=== PATIENT | male | born 1995 | race Caucasian/White ===

== ENCOUNTER 2019-12-17 08:00 | Emergency (ER) | payer OTHER, SELFPAY ==
--- NOTE | 2019-12-17 08:18 | XR_ITS ---
EXAMINATION: XR KNEE, LEFT CLINICAL INFORMATION: Left knee pain status post fall. COMPARISON: None TECHNIQUE: Four views of the left knee. FINDINGS: Bones and soft tissues are normal. No fracture or joint effusion. Alignment is anatomic. Joint spaces are well maintained. No abnormal soft tissue calcification. XR/XR knee LT 4V IMPRESSION: Unremarkable left knee.
--- NOTE | 2019-12-17 08:19 | ED.LOWEXIN ---
HPI - Extremity Injury (Lower) General Chief Complaint: Extremity Injury, Lower <CRISTINA Veloz - Last Filed: 12/17/19 09:08> Stated Complaint: left knee inj <CRISTINA Veloz - Last Filed: 12/17/19 09:08> Time Seen by Provider: 12/17/19 08:13 <CRISTINA Veloz - Last Filed: 12/17/19 09:08> Source: patient <CRISTINA Veloz - Last Filed: 12/17/19 09:08> Mode of arrival: ambulatory <CRISTINA Veloz - Last Filed: 12/17/19 09:08> Limitations: no limitations <CRISTINA Veloz Last Filed: 12/17/19 09:08> History of Present Illness HPI Narrative: 24 y/o healthy mal presenting with left knee pain after he injured it while playing basketball yesterday. He states he landed on his left leg after jumping and his knee went inward. He heard a pop. After that he was unable to fully straighten his leg. He was able to ambulate with a limp. This morning the pain continued so he came to the ER for evaluation. <CRISTINA Veloz - Last Filed: 12/17/19 09:08> MD complaint: knee injury <CRISTINA Veloz - Last Filed: 12/17/19 09:08> Injury: Left: knee <CRISTINA Veloz - Last Filed: 12/17/19 09:08> Type of Injury: inversion <CRISTINA Veloz Last Filed: 12/17/19 09:08> Place: street/outdoors <CRISTINA Veloz - Last Filed: 12/17/19 09:08> Severity: moderate <CRISTINA Veloz Last Filed: 12/17/19 09:08> Severity scale (1-10): 5 <CRISTINA Veloz Last Filed: 12/17/19 09:08> Relieving factors: rest <CRISTINA Veloz Last Filed: 12/17/19 09:08> Exacerbating factors: weight bearing, movement and palpation <CRISTINA Veloz - Last Filed: 12/17/19 09:08> Context: fall <CRISTINA Veloz - Last Filed: 12/17/19 09:08> Associated symptoms: snap/pop sensation <CRISTINA Veloz - Last Filed: 12/17/19 09:08> Other symptoms: none <CRISTINA Veloz - Last Filed: 12/17/19 09:08> Related Data Home Medications: Previous Rx's Medication Instructions Recorded ibuprofen 600 mg PO Q8H #30 tab 12/17/19 <CRISTINA Veloz - Last Filed: 12/17/19 09:08> Allergies/Adverse Reactions: Allergies Allergy/AdvReac Type Severity Reaction Status Date / Time No Known Allergies Allergy Unverified 10/24/19 18:37 <CRISTINA Veloz - Last Filed: 12/17/19 09:08> Review of Systems Review of Systems: Constitutional: No Fever, No Chills Cardiovascular: No Chest Pain, No SOB, No Orthopnea, No Edema Respiratory: No Cough, No Sputum, No Wheezing, No dyspnea Musculoskeletal: + joint pain, No Myalgias, No joint swelling Skin: No Skin Lesions, No rash Neuro: No Weakness, No Numbness, No Dizziness, No Headache Heme/Lymph: No Bruising <CRISTINA Veloz - Last Filed: 12/17/19 09:08> [facility] Past Medical History Attestation statement: The following information was validated with the patient. <CRISTINA Veloz - Last Filed: 12/17/19 09:08> Source: unable to obtain <CRISTINA Veloz - Last Filed: 12/17/19 09:08> Medical History: Medical History (Updated 12/18/19 @ 00:21 by Fiorella Vargas) No known health problems No known health problems <CRISTINA Veloz Last Filed: 12/17/19 09:08> Social History Social History: Social History Alcohol intake: never Smoked in Last 30 Days: No Use of substances other than those prescribed or required for medical reasons: No Advance Directives: Yes Advance Directives Information Provided: No Advance Directives on File: No <CRISTINA Veloz Last Filed: 12/17/19 09:08> Physical Exam Vital Signs: Vital Signs: Last Vital Signs Temp 98.6 F 12/17/19 08:20 Pulse 108 H 12/17/19 08:20 Resp 16 12/17/19 08:20 BP 148/92 H 12/17/19 08:20 Pulse Ox 99 12/17/19 08:20 Body Mass Index 36.1 General: well-developed, no distress. HEENT: Pharynx normal. CVS: Normal heart rate and rhythm. Pulses normal. Respiratory: No respiratory distress. Skin: Skin warm and dry. Normal skin color. Normal skin turgor. No rashes. Extremities: No lower extremity edema. Left knee with tenderness along the lateral joint line, no swelling, redness, crepitus. Full ROM with pain at full flexion and extention. Negative anterior drawer test. Normal left ankle joint inspection and palpation. Neuro: Oriented X 3. No motor deficit. No sensory deficit. <CRISTINA Veloz - Last Filed: 12/17/19 09:08> Vital Signs: Last Vital Signs Temp 98.6 F 12/17/19 08:20 Pulse 108 H 12/17/19 08:20 Resp 16 12/17/19 08:20 BP 148/92 H 12/17/19 08:20 Pulse Ox 99 12/17/19 08:20 Body Mass Index 36.1 <Luis Hobbs MD - Last Filed: 12/20/19 01:44> Course Course Course Narrative: Suspect knee strainm, unable to r/o ligamentous tear or meninscus tear. Will start with XR. <CRISTINA Veloz - Last Filed: 12/17/19 09:08> I have reviewed the chart <Luis Hobbs MD - Last Filed: 12/20/19 01:44> Reevaluation(s) Reevaluation #1: Knee x-ray unremarkable. Discussed with patient conservative management with compression, rest, ice and NSAIDs. If no improvement encouraged to f/u with Ortho for further evaluation. Patient agrees with plan. Stable for discharge. <CRISTINA Veloz - Last Filed: 12/17/19 09:08> Critical Care Time Critical Care Time Critical Care Time: No <CRISTINA Veloz - Last Filed: 12/17/19 09:08> Discharge Plan Discharge Clinical Impression: Knee sprain <CRISTINA Veloz - Last Filed: 12/17/19 09:08> Patient Disposition: Home, Self-Care <CRISTINA Veloz - Last Filed: 12/17/19 09:08> Instructions: Knee Sprain (ED) <CRISTINA Veloz - Last Filed: 12/17/19 09:08> Additional Instructions: Your knee x-ray today was normal. Recommend compression with BRENDA wrap for comfort, rest, ice, and elevation. Weight bearing as tolerated. Take ibuprofen and/or tylenol for discomfort. If no improvement in 1 week, follow up with Orthopedics for further evaluation. <CRISTINA Veloz - Last Filed: 12/17/19 09:08> Prescriptions: New ibuprofen 600 mg tablet 600 mg PO Q8H Qty: 30 RF: 0 <CRISTINA Veloz - Last Filed: 12/17/19 09:08> Referrals: Nae Kim MD [Physician] - 1 week <CRISTINA Veloz - Last Filed: 12/17/19 09:08> Interventions: ED Discharge Assessment Last Done: 12/17/19 09:08 <CRISTINA Veloz - Last Filed: 12/17/19 09:08> Discharge Date/Time: 12/17/19 09:12 <CRISTINA Veloz - Last Filed: 12/17/19 09:08>
[2019-12-17 08:20] VITALS: BP 148/92; PULSE 108; RESP 16; TEMP 37; O2SAT 99; BMI 36.1
== END 2019-12-17 09:12 | disposition home or self-care (01) ==
PROVIDERS: Emergency Provider Emergency Medicine
DX: S83.92XA Sprain of unspecified site of left knee, initial encounter (principal); M25.562 Pain in left knee; W01.0XXA Fall on same level from slipping, tripping and stumbling without subsequent striking against object, initial encounter; Y93.67 Activity, basketball; Y92.310 Basketball court as the place of occurrence of the external cause; Y99.9 Unspecified external cause status
CPT/HCPCS: 73564; 99283

== ENCOUNTER 2020-02-05 10:16 | Emergency (ER) | payer OTHER, SELFPAY ==
[2020-02-05 10:27] VITALS: BP 137/85; PULSE 100; RESP 18; TEMP 37.3; O2SAT 97; BMI 34.9
--- NOTE | 2020-02-05 10:55 | ED.GENADULT ---
HPI - General Adult General Chief complaint: Skin/Abscess/Foreign Body Stated complaint: rash Time Seen by Provider: 02/05/20 10:45 History of Present Illness HPI narrative: 24-year-old male presented today with having a rash over his foreskin. The rash is pleuritic. It is over the mucosal side. Patient denies any fever chills coughing congestion upper respiratory symptoms. Patient is in a monogamous relationship. Had not been sexually active for 2 weeks. Patient denies any penile discharge. Patient claims that it did when the skin is dry it feels a little better. No history of the same. Related Data Previous Rx's Medication Instructions Recorded ibuprofen 600 mg PO Q8H #30 tab 12/17/19 hydrocortisone 1 appl TOPICAL BID PRN 7 Days g 02/05/20 Allergies Allergy/AdvReac Type Severity Reaction Status Date / Time No Known Allergies Allergy Verified 02/05/20 10:30 Review of Systems Review of Systems: Appearance: Alert. Oriented X3. No acute distress. Eyes: Pupils equal, round and reactive to light. ENT: Pharynx normal. Neck: Normal inspection. Neck supple. No lymph nodes noted. No crepitus CVS: Normal heart rate and rhythm. Pulses normal. Normal S1 and S2 Respiratory: No respiratory distress. Breath sounds normal. No Wheezing. No rales Abdomen: Soft and nontender. No rigidity. No distention. good BS x4 Skin: Dry appearing flaky rash over the foreskin on the mucosal side of the foreskin. Extremities: No lower extremity edema. Neurovascular intact to all extremities. No Lacerations. No Rash Neuro: Oriented X 3. No motor deficit. No sensory deficit. Moving all extermities. No slurred speech PMFSH Past Medical History Medical History (Updated 02/05/20 @ 11:02 by Yaima Calhoun MD) No known health problems No known health problems Social History Social History Alcohol intake: never Advance Directives: No Advance Directives Information Provided: Yes Physical Exam Vital Signs: Vital Signs: Last Vital Signs Temp 99.2 F 02/05/20 10:27 Pulse 100 02/05/20 10:27 Resp 18 02/05/20 10:27 BP 137/85 02/05/20 10:27 Pulse Ox 97 02/05/20 10:27 Body Mass Index 34.9 Medical Decision Making MDM Narrative Medical decision making narrative: Question eczema. Will check a sugar to ensure patient is not diabetic and having balantitis. Patient is sexually active only with 1 partner. Patient's is . He has not been active for 2 weeks. Doubt that this is secondary to STD. Will sent off a urine for GC and chlamydia. Patient's UA was negative for infection. Patient's sugar was 111 no overt evidence for diabetes. Will discharge patient home. Lab Data Labs: Lab Results 02/05/20 02/05/20 02/05/20 Range/Units 10:55 11:01 11:01 POC Glucose 111 (60-115) mg/dL Urine Color YELLOW Urine Appearance CLEAR Urine pH 7.0 (5.0-8.0) Ur Specific [place] 1.020 (1.005-1.025) Urine Protein NEG (NEG-TRACE) MG/DL Urine Glucose (UA) NEG (NEG) MG/DL Urine Ketones NEG (NEG) MG/DL Urine Blood NEG (NEG) Urine Nitrite NEG (NEG) Ur Leukocyte Esterase NEG (NEG) Chlam trachomat DNA PCR Cancelled N.gonorrhoeae DNA (PCR) Cancelled Discharge Plan Discharge Clinical Impression: Eczema Patient Disposition: Home, Self-Care Prescriptions: New hydrocortisone 1 % cream 1 appl topical BID PRN (Reason: itching) 7 Days RF: 0 No Action ibuprofen 600 mg tablet 600 mg PO Q8H Qty: 30 RF: 0 Referrals: [facility] [Provider Group] - 2 days Physician,Unknown [Primary Care Provider] - 2 days
[2020-02-05 10:59] LABS: Glucose, Whole Blood 111 mg/dL (60-115)
[2020-02-05 11:11] LABS: Glucose Urine UA NEG (NEG); Leukocyte Esterase Urine NEG (NEG); Nitrite Urine NEG (NEG); Urine Blood NEG (NEG); Urine Ketones NEG (NEG); Urine Protein NEG (NEG-TRACE)
[2020-02-05 11:13] LABS: Appearance Urine CLEAR; Color Urine YELLOW
[2020-02-08 08:47] LABS: C. trachomatis RNA TMA NOT DETECTED (NOT DETECTED); N. gonorrhoeae RNA TMA NOT DETECTED (NOT DETECTED)
== END 2020-02-05 11:38 | disposition home or self-care (01) ==
PROVIDERS: Emergency Provider Emergency Medicine Emergency Medical Services
DX: L30.9 Dermatitis, unspecified (principal)
CPT/HCPCS: 81003; 82947; 87491; 87591; 99283

== ENCOUNTER 2020-09-24 16:19 | Emergency (ER) | payer OTHER, SELFPAY ==
[2020-09-24 16:22] VITALS: BP 164/91; PULSE 88; RESP 16; TEMP 36.8; O2SAT 99; BMI 34.4
== END 2020-09-24 21:26 | disposition left against medical advice (07) ==
PROVIDERS: Emergency Provider Emergency Medicine
DX: R07.9 Chest pain, unspecified (principal)
CPT/HCPCS: 99282; 99283